=== PATIENT | female | born 1985 ===

== ENCOUNTER 2018-07-04 08:29 | Emergency (ER) | payer SELFPAY ==
--- NOTE | 2018-07-04 09:38 | ER ---
Nurse's Notes [facility] Name: Fernanda Tyler Age: 33 yrs Sex: Female : 1985 Arrival Date: 07/04/2018 Time: 08:34 Bed 13 Private MD: Diagnosis: Acute upper respiratory infection, unspecified;Conjunctivitis Presentation: 07/04 08:40 Presenting complaint: Sinus congestion and headache x 3 days, watery eyes x 1 day. hb Denies fever. Transition of care: patient was not received from another setting of care. Onset of symptoms was July 01, 2018. Risk Assessment: Do you want to hurt yourself or someone else? Patient reports no desire to harm self or others. Initial Sepsis Screen: Does the patient meet any 2 criteria? No. Patient's initial sepsis screen is negative. Does the patient have a suspected source of infection? No. Patient's initial sepsis screen is negative. Care prior to arrival: None. 08:40 Method Of Arrival: Ambulatory hb 08:40 Acuity: ALEX 4 hb Triage Assessment: 09:08 Pain:. 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 - Social history:: Smoking status: Patient/guardian denies using tobacco. - Ebola Screening: : No symptoms or risks identified at this time. - Family history:: not pertinent. Screenin:07 Abuse screen: Denies threats or abuse. Denies injuries from another. Nutritional ls4 screening: No deficits noted. Tuberculosis screening: No symptoms or risk factors identified. Fall Risk None identified. Assessment: 09:07 General: Appears in no apparent distress. uncomfortable, Behavior is calm, cooperative. ls4 Neuro: No deficits noted. Respiratory: No deficits noted. GI: No deficits noted. : No deficits noted. EENT: Reports nasal congestion. Derm: No deficits noted. Musculoskeletal: No deficits noted. Vital Signs: 08:40 BP 130 / 76; Pulse 84; Resp 16; Temp 98.7; Pulse Ox 100% ; Pain 2/10; hb ED Course: 08:34 Patient arrived in ED. tw3 08:36 Akbar Simpson MD is Attending Physician. [facility] 08:40 Triage completed. hb 08:41 Arm band placed on. 09:07 Negin Samuel, RN is Primary Nurse. ls4 09:07 Patient has correct armband on for positive identification. Bed in low position. Call ls4 light in reach. Side rails up X 1. 09:07 No provider procedures requiring assistance completed. ls4 10:00 Patient did not have IV access during this emergency room visit. ls4 Administered Medications: 09:48 Drug: Augmentin 875 mg Route: PO; ls4 10:00 Follow up: Response: No adverse reaction; Marked relief of symptoms ls4 Outcome: 09:37 Discharge ordered by . [facility] 09:56 Patient left the ED. ls4 10:00 Condition: stable ls4 10:00 Discharged to home ambulatory, with family. ls4 10:00 Discharge instructions given to patient, family, Instructed on discharge instructions, follow up and referral plans. medication usage, Demonstrated understanding of instructions, follow-up care, medications, Prescriptions given X 3. Signatures: Akbar Simpson MD MD cha Baxter, Heather, RN RN Lázaro, Tia tw3 Negin Samuel, RN RN ls4 Corrections: (The following items were deleted from the chart) 19:46 10:15 Response: No adverse reaction; Marked relief of symptoms ls4 ls4
--- NOTE | 2018-07-04 09:38 | EDPHYS ---
Physician Documentation [facility] Name: Fernanda Tyler Age: 33 yrs Sex: Female : 1985 Arrival Date: 07/04/2018 Time: 08:34 Bed 13 Private MD: ED Physician Akbar Simpson HPI: 07/04 09:34 This 33 yrs old Female presents to ER via Ambulatory with complaints of Sinus negrito Congestion. 09:34 The patient or guardian reports cough. Onset: The symptoms/episode began/occurred 2 negrito day(s) ago. Severity of symptoms: At their worst the symptoms were. Modifying factors: The symptoms are alleviated by nothing. Associated signs and symptoms: The patient has no apparent associated signs or symptoms. The patient has not experienced similar symptoms in the past. 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 - Social history:: Smoking status: Patient/guardian denies using tobacco. - Ebola Screening: : No symptoms or risks identified at this time. - Family history:: not pertinent. ROS: 09:34 Constitutional: Negative for fever, chills, and weight loss, ENT: Negative for injury, negrito pain, and discharge, Neck: Negative for injury, pain, and swelling, Cardiovascular: Negative for chest pain, palpitations, and edema, Respiratory: Negative for shortness of breath, cough, wheezing, and pleuritic chest pain, Abdomen/GI: Negative for abdominal pain, nausea, vomiting, diarrhea, and constipation, Back: Negative for injury and pain, : Negative for injury, bleeding, discharge, and swelling, MS/Extremity: Negative for injury and deformity, Skin: Negative for injury, rash, and discoloration, Neuro: Negative for headache, weakness, numbness, tingling, and seizure, Psych: Negative for depression, anxiety, suicide ideation, homicidal ideation, and hallucinations, Allergy/Immunology: Negative for hives, rash, and allergies, Endocrine: Negative for neck swelling, polydipsia, polyuria, polyphagia, and marked weight changes, Hematologic/Lymphatic: Negative for swollen nodes, abnormal bleeding, and unusual bruising. 09:34 Eyes: Positive for itching, photophobia, tearing. Exam: 09:34 Constitutional: This is a well developed, well nourished patient who is awake, alert, negrito and in no acute distress. Head/Face: Normocephalic, atraumatic. Eyes: Pupils equal round and reactive to light, extra-ocular motions intact. Lids and lashes normal. Conjunctiva and sclera are non-icteric and not injected. Cornea within normal limits. Periorbital areas with no swelling, redness, or edema. ENT: Nares patent. No nasal discharge, no septal abnormalities noted. Tympanic membranes are normal and external auditory canals are clear. Oropharynx with no redness, swelling, or masses, exudates, or evidence of obstruction, uvula midline. Mucous membranes moist. Neck: Trachea midline, no thyromegaly or masses palpated, and no cervical lymphadenopathy. Supple, full range of motion without nuchal rigidity, or vertebral point tenderness. No Meningismus. Chest/axilla: Normal chest wall appearance and motion. Nontender with no deformity. No lesions are appreciated. Cardiovascular: Regular rate and rhythm with a normal S1 and S2. No gallops, murmurs, or rubs. Normal PMI, no JVD. No pulse deficits. Respiratory: Lungs have equal breath sounds bilaterally, clear to auscultation and percussion. No rales, rhonchi or wheezes noted. No increased work of breathing, no retractions or nasal flaring. Abdomen/GI: Soft, non-tender, with normal bowel sounds. No distension or tympany. No guarding or rebound. No evidence of tenderness throughout. Back: No spinal tenderness. No costovertebral tenderness. Full range of motion. Skin: Warm, dry with normal turgor. Normal color with no rashes, no lesions, and no evidence of cellulitis. MS/ Extremity: Pulses equal, no cyanosis. Neurovascular intact. Full, normal range of motion. Neuro: Awake and alert, GCS 15, oriented to person, place, time, and situation. Cranial nerves II-XII grossly intact. Motor strength 5/5 in all extremities. Sensory grossly intact. Cerebellar exam normal. Normal gait. Psych: Awake, alert, with orientation to person, place and time. Behavior, mood, and affect are within normal limits. Vital Signs: 08:40 BP 130 / 76; Pulse 84; Resp 16; Temp 98.7; Pulse Ox 100% ; Pain 2/10; hb MDM: 08:36 Patient medically screened. [facility] 09:36 Data reviewed: vital signs, nurses notes. [facility] Administered Medications: 09:48 Drug: Augmentin 875 mg Route: PO; ls4 10:00 Follow up: Response: No adverse reaction; Marked relief of symptoms ls4 Disposition: 07/04/18 09:37 Discharged to Home. Impression: Acute upper respiratory infection, unspecified, Conjunctivitis. - Condition is Stable. - Discharge Instructions: Allergic Conjunctivitis, Adult, Upper Respiratory Infection, Adult, Upper Respiratory Infection, Adult, [id number], Bacterial Conjunctivitis, [id number], Cough, Adult, [id number], Cough, Adult. - Prescriptions for Polytrim 10,000 unit- 1 mg/mL Ophthalmic drops - instill 1 drop by OPHTHALMIC route every 6 hours; 10 milliliter. Augmentin 875- 125 mg Oral Tablet - take 1 tablet by ORAL route every 12 hours for 10 days; 20 tablet. Tiffany- D 12 Hour 60-120 mg Oral Tablet Sustained Release 12 hr - take 1 tablet by ORAL route every 12 hours As needed; 20 tablet. - Medication Reconciliation Form, Thank You Letter, Antibiotic Education, Prescription Opioid Use, Family Work Release form. - Follow up: Private Physician; When: 2 - 3 days; Reason: Recheck today's complaints, Continuance of care, Re-evaluation by your physician. - Problem is new. - Symptoms have improved. Signatures: Akbar Simpson MD MD [facility] Gia Aburto, MARIO RN Negin Samuel RN RN ls4 Corrections: (The following items were deleted from the chart) 09:56 09:37 07/04/2018 09:37 Discharged to Home. Impression: Acute upper respiratory ls4 infection, unspecified; Conjunctivitis. Condition is Stable. Forms are Medication Reconciliation Form, Thank You Letter, Antibiotic Education, Prescription Opioid Use. Follow up: Private Physician; When: 2 - 3 days; Reason: Recheck today's complaints, Continuance of care, Re-evaluation by your physician. Problem is new. Symptoms have improved. [facility]
[2018-07-04] MEDS ORDERED: AMOX/K CLAV 875 MG TAB ONE (09:57)
== END 2018-07-04 09:56 | disposition home or self-care (01) ==
LOC: ER 08:29
DX: J06.9 Acute upper respiratory infection, unspecified (principal); H10.9 Unspecified conjunctivitis
CPT/HCPCS: 99283